=== PATIENT | male | born 2000 | race Two or more races ===

== ENCOUNTER 2023-09-14 20:40 | Emergency (ER) | payer OTHER ==
[~2023-09-14] VITALS: Ht 180.3 cm; Wt 74.8 kg
[2023-09-14] MEDS ORDERED: SILVADENE20 GM TOP ×2 (23:12→23:13)
[2023-09-14] MEDS ORDERED: DUI500 PO (23:13)
== END 2023-09-15 00:02 | disposition home or self-care (01) ==
LOC: ER 20:40
DX: T23.142A Burn of first degree of multiple left fingers (nail), including thumb, initial encounter (principal); X10.2XXA Contact with fats and cooking oils, initial encounter; Y93.G3 Activity, cooking and baking; Y92.9 Unspecified place or not applicable; Y99.9 Unspecified external cause status